=== PATIENT | female | born 1985 | race Caucasian/White ===

== ENCOUNTER → 2017-10-14 22:42 | Emergency (ER) | payer BC ==
[~2017-10-14 22:42] MED LIST: Naphazoline/Pheniramine OPTH* 5 ML BTL BOTH EYES SCH; oxyCODONE/Acetamin 5/325 MG* TAB PO ONE
--- NOTE | 2017-10-14 23:14 | ED ---
Throat Pain/Nasal Congestion - HPI Summary HPI Summary: This patient is a 32 year old F presenting to [facility] with a chief complaint of facial pain since 20:30. Steam blasted her face after she opened the oven, which had uncovered sweet potatoes. She feels as if her left eye is burned. The patient rates the pain 5/10 in severity. Patient reports feeling weak. - History of Current Complaint Chief Complaint: EDGeneral Time Seen by Provider: 10/14/17 22:53 Hx Obtained From: Patient Onset/Duration: Sudden Onset, Lasting Hours - Since 20:30 Severity: Moderate - Allergies/Home Medications Allergies/Adverse Reactions: Allergies Allergy/AdvReac Type Severity Reaction Status Date / Time No Known Allergies Allergy Verified 10/14/17 22:48 PMH/Surg Hx/FS Hx/Imm Hx Previously Healthy: No - Chronic Lyme disease Endocrine/Hematology History: Denies: Hx Diabetes Cardiovascular History: Denies: Hx Coronary Artery Disease Infectious Disease History: No Infectious Disease History: Denies: Traveled Outside the [place] in Last 30 Days - Family History Known Family History: Positive: Cardiac Disease - Social History Alcohol Use: None Substance Use Type: Reports: None Smoking Status (MU): Never Smoked Tobacco Review of Systems Positive: Other - Feeling weak Positive: Other - Left eye feels "burned" All Other Systems Reviewed And Are Negative: Yes Physical Exam - Summary Physical Exam Summary: VITAL SIGNS: Reviewed. GENERAL: Patient is a well-developed and nourished FEMALE who is lying comfortable in the stretcher. Patient is not in any acute respiratory distress. HEAD AND FACE: No signs of trauma. No ecchymosis, hematomas or skull depressions. No sinus tenderness. EYES: PERRLA, EOMI x 2, No injected conjunctiva, no nystagmus. EARS: Hearing grossly intact. Ear canals and tympanic membranes are within normal limits. MOUTH: Oropharynx within normal limits. NECK: Supple, trachea is midline, no adenopathy, no JVD, no carotid bruit, no c- spine tenderness, neck with full ROM. CHEST: Symmetric, no tenderness at palpation LUNGS: Clear to auscultation bilaterally. No wheezing or crackles. CVS: Regular rate and rhythm, S1 and S2 present, no murmurs or gallops appreciated. ABDOMEN: Soft, non-tender. No signs of distention. No rebound no guarding, and no masses palpated. Bowel sounds are normal. EXTREMITIES: FROM in all major joints, no edema, no cyanosis or clubbing. NEURO: Alert and oriented x 3. No acute neurological deficits. Speech is normal and follows commands. SKIN: Dry and warm Triage Information Reviewed: Yes Vital Signs On Initial Exam: Initial Vitals Temp Pulse Resp BP Pulse Ox 99.4 F 69 16 141/85 98 10/14/17 22:44 10/14/17 22:44 10/14/17 22:44 10/14/17 22:44 10/14/17 22:44 Vital Signs Reviewed: Yes Diagnostics - Vital Signs Vital Signs Temp Pulse Resp BP Pulse Ox 10/14/17 22:44 99.4 F 69 16 141/85 98 - Laboratory Lab Statement: Any lab studies that have been ordered have been reviewed, and results considered in the medical decision making process. EENT Course/Dx - Course Assessment/Plan: This patient is a 32 year old F presenting to [facility] with a chief complaint of facial pain since 20:30. Steam blasted her face after she opened the oven, which had uncovered sweet potatoes. She feels as if her left eye is burned.. The physical exam was normal. Patient will be discharged home with instructions to use eye drops. - Diagnoses Provider Diagnoses: Conjunctivitis Discharge - Sign-Out/Discharge Documenting (check all that apply): Patient Departure - D/C - Discharge Plan Condition: Stable Disposition: HOME Patient Education Materials: Conjunctivitis (ED) Referrals: No Primary Care Phys,NOPCP [Primary Care Provider] - 2 Days (Follow up with [facility] in 2 days time.) Additional Instructions: Use eye drops for discomfort. RETURN TO THE EMERGENCY DEPARTMENT FOR CHANGING OR WORSENING SYMPTOMS. FOLLOW UP WITH PCP IN 1-2 DAYS. - Attestation Statements Document Initiated by Scribe: Yes Documenting Scribe: Yefri Jaffe Provider For Whom Scribe is Documenting (Include Credential): Letty Jay MD Scribe Attestation: Yefri Soto, scribed for Letty Jay MD on 10/15/17 at 0004.
[2017-10-15 00:09] VITALS: BP 97/56
== END | disposition home or self-care (01) ==
LOC: ED 22:42
DX: H10.9 Unspecified conjunctivitis (principal)
CPT/HCPCS: 99282; A9270-GY